=== PATIENT | female | born 1955 | race Caucasian/White ===

== ENCOUNTER 2017-04-27 06:52 | Observation (INO) | payer OTHER ==
[2017-04-27 07:27] VITALS: BMI 31.6
--- NOTE | 2017-04-27 07:54 | PDOC ---
Attending Attestation - Resident Resident Name: Ledy Benson - ED Attending Attestation I have performed the following: I have examined & evaluated the patient, The case was reviewed & discussed with the resident, I agree w/resident's findings & plan, Exceptions are as noted - HPI HPI: 04/27/17 08:11 This is a 62 yo F presenting to the ER with a complaint of back pain Symptoms began 2 weeks ago Worsened - Physicial Exam PE: 04/27/17 09:22 On examination: Right flank pain/sensitivity No abd tenderness Right buttock tenderness to palpation Pt is standing in her room She has difficulty sitting or standing - Medical Decision Making 04/27/17 09:22 Laboratory Tests 04/27/17 04/27/17 09:00 09:00 WBC 9.0 D Hgb 14.0 D Hct 40.5 D Plt Count 246 D Urine Blood Negative Ur Leukocyte Esterase Negative Urine RBC 3 Urine WBC 1 <Che Connolly - Last Filed: 04/27/17 09:22> - Medical Decision Making 04/27/17 10:05 EXAM#: TYPE/EXAM: RESULT: [id number] CT/SPIRAL- RENAL-STONE CT Renal stone CT without contrast Clinical information: lower back pain, evaluate for possible renal calculi Multiplanar imaging was performed. No urinary tract calculus or hydroureteronephrosis is seen. In comparison to a prior CT study of 06/29/2015 there has been interval resolution of a 3 cm fluid collection abutting the cecum laterally. Pericecal surgical clips are noted. The patient is apparently status post appendectomy. The liver, spleen, pancreas, gallbladder, kidneys and adrenal glands demonstrate no discrete noncontrast pathology. Incidental note is again made of small bilateral renal peripelvic cysts and a right renal cortical cyst. There is no aortic aneurysm. No evidence of pneumoperitoneum, bowel obstruction or free intraperitoneal fluid. Apparent surgical clips are seen within the right lateral aspect of the pelvis. No obvious pelvic pathology is visualized. There is mild to moderate multilevel bilateral lumbar degenerative facet arthropathy. IMPRESSION: No CT findings of acute pathology are identified. There is no evidence of urolithiasis or obstructive uropathy. Reported By: Aleks Farfan MD 04/27/17 1000 Documentation prepared by Clifford Painter, acting as manager medical for Che Connolly MD. <Clifford Painter - Last Filed: 04/27/17 10:06>
--- NOTE | 2017-04-27 07:59 | PDOC ---
History of Present Illness - General Chief Complaint: Back Pain Stated Complaint: BACK PAIN Time Seen by Provider: 04/27/17 07:42 History Source: Patient Exam Limitations: No Limitations - History of Present Illness Initial Comments: 04/27/17 08:56 Patient is a 62 y.o. female with a PMH of HTN who presents to our facility today c/o of a 2 week h/o of lower back pain that became increasingly severe overnight prompting her visit to the ED. Patient states the back pain began after lifting a heavy object. Initially the pain was confined to her lower back, however following prolonged sitting on a child sized chair, the pain spread to her R hip and upper leg. Patient denies any loss of sensation or urinary complaints, however noted that yesterday she was walking "funny" which she describes as her L leg "dragging" (possible Trendelenburg gait). Patient saw her PCP last week and was prescribed Metaxalone which provided some relief ( pain 10/10 prior to medication --> pain 6/10 following medication) however the medication did not relieve her symptoms overnight. Patient also notes she was taking some Oxycodone prescribed to her previously with no appreciable relief. Timing/Duration: other (2 week h/o lower back pain) Severity: severe Modifying Factors: improves with: other (Relieved by standing, exacerbated by laying supine) Associated Symptoms: reports: denies symptoms Aspirin Received prior to arrival: Yes: no aspirin today Beta Tri Contraindications(Core Measure): Yes: Not Prescribed Beta Tri Not Indicated at this Time(Core Measure): Yes Past History - Past Medical History Allergies/Adverse Reactions: Allergies Allergy/AdvReac Type Severity Reaction Status Date / Time No Known Allergies Allergy Verified 04/27/17 07:23 Home Medications: Ambulatory Orders Amlodipine Besylate [Norvasc -] 5 mg PO DAILY 03/31/13 Omeprazole [Prilosec] 40 mg PO DAILY 06/29/15 Alprazolam [Xanax] 0.25 mg PO DAILY PRN 04/27/17 Duloxetine HCl [Cymbalta] 40 mg PO DAILY 04/27/17 Hydrochlorothiazide 25 mg PO DAILY 04/27/17 Ibuprofen [Motrin -] 400 mg PO TID tablet 04/28/17 Meloxicam [Mobic] 15 mg PO DAILY #30 tablet 04/28/17 Cancer: Yes (H/O UTERINE.) HTN: Yes Hypercholesterolemia: Yes Psychiatric Problems: Yes (ANXIETY.) Suicide Attempt (Hx): No - Surgical History Abdominal Surgery: Yes Appendectomy: Yes (05/2015) - Psycho/Social/Smoking Cessation Hx Anxiety: Yes Suicidal Ideation: No Smoking Status: No Smoking History: Never smoked Have you smoked in the past 12 months: No Number of Cigarettes Smoked Daily: 0 Information on smoking cessation initiated: No Hx Alcohol Use: No Drug/Substance Use Hx: No Substance Use Type: None Review of Systems - Review of Systems Able to Perform ROS?: Yes All Other Systems: Reviewed and Negative *Physical Exam - Vital Signs Last Vital Signs Temp Pulse Resp BP Pulse Ox 98.7 F 60 18 147/80 100 04/27/17 07:24 04/27/17 07:24 04/27/17 07:24 04/27/17 07:24 04/27/17 07:24 - Physical Exam General Appearance: Yes: Nourished Neck: positive: Tender, Supple Respiratory/Chest: positive: Lungs Clear, Normal Breath Sounds Cardiovascular: positive: Regular Rhythm, Regular Rate, S1, S2 Gastrointestinal/Abdominal: positive: Normal Bowel Sounds, Soft Musculoskeletal: positive: CVA Tenderness Integumentary: positive: Normal Color, Dry, Warm Neurologic: positive: consulting database administrator II-XII NML intact, Fully Oriented, Alert ED Treatment Course - LABORATORY CBC & Chemistry Diagram: 04/27/17 09:00 04/28/17 06:38 Medical Decision Making - Medical Decision Making 04/27/17 11:08 Patient is a 62 y.o. female with a PMH of HTN who presents for a 1 day h/o increased severity of sacral back pain with radiation to her hip and thigh. UA was negative for hematuria and Pelvic/Abdominal CT showed no evidence of renal calculi. Imaging of patient's R hip showed no acute fracture and lumbar/ sacral x-ray showed degenerative changes and scoliosis. Given the absence of fracture patient is advised to follow up with her PCP for a referral to physical therapy. As patient was in significant pain and unable to ambulate a decision was made to admit her for observation. 04/27/17 11:57 *DC/Admit/Observation/Transfer Diagnosis at time of Disposition: Severe low back pain - Discharge Dispostion Disposition: HOME Condition at time of disposition: Stable Admit: Yes - Prescriptions - Referrals - Attestations Physician Attestion: 04/27/17 13:46 I, Dr. Ledy Benson, attest that this document has been prepared under my direction and personally reviewed by me in its entirety. I further attest, that it accurately reflects all work, treatment, procedures and medical decision -making performed by me.
[2017-04-27] MEDS ORDERED: morphine CARPU-JECT 4 MG/1 ML DISP.SYRIN IVPUSH ONE ×2 (08:34→09:33)
[2017-04-27] MEDS ORDERED: morphine CARPU-JECT 4 MG/1 ML DISP.SYRIN ONE ×2 (08:40→10:04)
[2017-04-27 09:14] LABS: BASOPHIL 1.3 % (0-2.0); EOSINOPHIL 1.7 % (0-4.5); MCH 32.4 pg (25.7-33.7); MCHC 34.6 g/dl (32.0-36.0); MEAN CELL VOLUME 93.5 fl (80-96); MEAN PLT VOLUME 8.1 fl (7.5-11.1); NEUTROPHILS 63.7 % (42.8-82.8); PLATELET COUNT 246 K/MM3 (134-434)
[2017-04-27 09:16] LABS: URINE APPEARANCE CLEAR; URINE BILIRUBIN NEGATIVE (NEGATIVE); URINE BLOOD NEGATIVE (NEGATIVE); URINE COLOR YELLOW; URINE GLUCOSE (UA) NEGATIVE (NEGATIVE); URINE KETONE TRACE (NEGATIVE); URINE LEUK ESTERASE NEGATIVE (NEGATIVE); URINE NITRITE NEGATIVE (NEGATIVE); URINE UROBILINOGEN NEGATIVE E.U./dl (0.2-1.0)
[2017-04-27 09:19] LABS: URINE PROTEIN 2+ (NEGATIVE)
[2017-04-27 09:21] LABS: URINE BACTERIA RARE /hpf (NONE SEEN); URINE HYALINE CAST 5 /lpf; URINE MUCUS MODERATE; URINE RBC 3 /hpf (0-3); URINE WBC 1 /hpf (3-5)
[2017-04-27 09:39] LABS: ANION GAP 8 (8-16); CALCIUM 10.2 mg/dL (8.5-10.1); CO2 29 mmol/L (21-32); CREATININE 0.9 mg/dL (0.55-1.02); GLUCOSE,RANDOM 94 mg/dL (74-106)
[2017-04-27] MEDS ORDERED: amLODIPine BESYLATE 10 MG TABLET (FP) PO ONE (11:27)
[2017-04-27] MEDS ORDERED: LOSARTAN 50MG/HCTZ 12.5MG 1 TAB (FP) PO ONE (11:28)
[2017-04-27] MEDS ORDERED: KETOROLAC TROMETHAMINE 30 MG/1 ML VIAL IVPUSH ONE (13:11)
[2017-04-27] MEDS ORDERED: KETOROLAC TROMETHAMINE 30 MG/1 ML VIAL ONE (13:22)
[2017-04-27] MEDS ORDERED: ALPRAZolam 0.25 MG TABLET PO PRN (14:05)
[2017-04-27] MEDS ORDERED: morphine CARPU-JECT 2 MG/1 ML DISP.SYRIN IVPUSH PRN (14:06)
[2017-04-27] MEDS ORDERED: KETOROLAC TROMETHAMINE 15 MG/ML VIAL IVPUSH PRN (18:59)
--- NOTE | 2017-04-27 20:07 | HP ---
Admitting History and Physical - Admission Chief Complaint: back pain History of Present Illness: 62 yo female, having increased back pain over past 2 weeks. 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 Had seen Dr Etienne (PMD) and started on tramadol , then nabumetone, then Mobic for the pain, with prn percocet also tried. The only one that helped slightly seemed to be the Mobic, but today pain became so intense that she could hardly move. No fevers during this time. Pain went down her legs, but no urinary or stool incontinence. In ED CT abd/pelv done to r/o renal colic as source of pain (no abnormalities of abdomen seen). Patient attempted to get up in the ED, but could not walk due to the pain, so now admitted for observation/ intractable pain. History Source: Patient, Medical Record Limitations to Obtaining History: No Limitations - Past Medical History Cardiovascular: Yes: HTN Gastrointestinal: Yes: GERD Infectious Disease: Yes: Other (h/o abd abscess following appendectomy) - Past Surgical History Past Surgical History: Yes: Appendectomy, Hysterectomy (for uterine ca) - Smoking History Smoking history: Never smoked Have you smoked in the past 12 months: No Aproximately how many cigarettes per day: 0 - Alcohol/Substance Use Hx Alcohol Use: No History of Substance Use: reports: None - Social History Occupation: Works as an medical assistant cardiology History of Recent Travel: No Home Medications - Allergies Allergies/Adverse Reactions: Allergies Allergy/AdvReac Type Severity Reaction Status Date / Time No Known Allergies Allergy Verified 04/27/17 07:23 - Home Medications Home Medications: Ambulatory Orders Amlodipine Besylate [Norvasc -] 5 mg PO DAILY 03/31/13 Omeprazole [Prilosec] 40 mg PO DAILY 06/29/15 Alprazolam [Xanax] 0.25 mg PO DAILY PRN 04/27/17 Duloxetine HCl [Cymbalta] 40 mg PO DAILY 04/27/17 Hydrochlorothiazide 25 mg PO DAILY 04/27/17 Family Disease History - Family Disease History Family Disease History: CA: Father (mesothelioma), Other: Mother (HTN) Review of Systems - Review of Systems Constitutional: denies: Chills, Lethargy, Loss of Appetite Eyes: reports: No Symptoms HENT: denies: Difficult Swallowing, Epistaxis, Nasal Congestion, Throat Pain Neck: denies: Pain on Movement, Tenderness Cardiovascular: denies: Chest Pain, Palpitations Respiratory: denies: Cough, SOB, SOB on Exertion Gastrointestinal: denies: Abdominal Pain, Constipation, Diarrhea, Melena, Nausea , Vomiting Genitourinary: denies: Burning, Discharge, Dysuria Neurological: denies: Change in LOC, Dizziness, Headache, Seizure Physical Examination Vital Signs: Vital Signs Temperature 98.0 F 04/27/17 16:20 Pulse Rate 64 04/27/17 16:20 Respiratory Rate 18 04/27/17 16:20 Blood Pressure 138/60 04/27/17 16:20 O2 Sat by Pulse Oximetry (%) 97 04/27/17 16:20 Constitutional: Yes: Well Nourished, No Distress, Calm, Anxious Eyes: Yes: Conjunctiva Clear, EOM Intact, PERRL HENT: Yes: Atraumatic, Normocephalic Neck: Yes: Supple, Trachea Midline Cardiovascular: Yes: Regular Rate and Rhythm, S1, S2. No: Murmur Respiratory: Yes: Regular, CTA Bilaterally. No: Rales, Rhonchi, Wheezes Gastrointestinal: Yes: Normal Bowel Sounds, Soft. No: Abdomen, Obese, Distention, Tenderness Musculoskeletal: Yes: Back Pain Edema: No Neurological: Yes: Alert, Oriented Labs: Laboratory Tests 04/27/17 04/27/17 04/27/17 09:00 09:00 09:00 WBC 9.0 D RBC 4.33 Hgb 14.0 D Hct 40.5 D MCV 93.5 MCH 32.4 MCHC 34.6 RDW 13.0 Plt Count 246 D MPV 8.1 Neutrophils % 63.7 Lymphocytes % 27.2 Monocytes % 6.1 Eosinophils % 1.7 Basophils % 1.3 Sodium 138 Potassium 4.5 Chloride 101 Carbon Dioxide 29 Anion Gap 8 BUN 17 Creatinine 0.9 D Random Glucose 94 Calcium 10.2 H D Urine Color Yellow Urine Appearance Clear Urine pH 7.0 D Ur Specific [place] 1.015 Urine Protein 2+ H Urine Glucose (UA) Negative Urine Ketones Trace H Urine Blood Negative Urine Nitrite Negative Urine Bilirubin Negative Urine Urobilinogen Negative Ur Leukocyte Esterase Negative Urine RBC 3 Urine WBC 1 Ur Epithelial Cells Rare Urine Bacteria Rare Hyaline Casts 5 Urine Mucus Moderate Problem List - Problems (1) Severe low back pain Assessment/Plan: -intractable back pain, unable to safely go home as cannot ambulate. -will treat with anti-inflammatories and pain medication, PT eval -hopefully if out of intractable pain by tomorrow can d/c home (if not will need pain mx for possible epidural) Code(s): M54.5 - LOW BACK PAIN
[2017-04-27] MEDS ORDERED: IBUPROFEN 400 MG TABLET (FP) PO SCH (22:00)
[2017-04-28 01:53] VITALS: TEMP 97.6
[2017-04-28 09:16] LABS: ANION GAP 7 (8-16); CALCIUM 9.1 mg/dL (8.5-10.1); CO2 31 mmol/L (21-32); CREATININE 0.7 mg/dL (0.55-1.02); GLUCOSE,RANDOM 91 mg/dL (74-106)
--- NOTE | 2017-04-28 09:42 | DS ---
Physical Examination Vital Signs: Vital Signs Temperature 97.6 F 04/28/17 05:51 Pulse Rate 60 04/28/17 05:51 Respiratory Rate 20 04/28/17 05:51 Blood Pressure 148/70 04/28/17 05:51 O2 Sat by Pulse Oximetry (%) 96 04/28/17 05:44 Constitutional: Yes: Well Nourished, No Distress, Calm Neck: Yes: Supple, Trachea Midline Cardiovascular: Yes: Regular Rate and Rhythm, S1, S2. No: Murmur Respiratory: Yes: Regular, CTA Bilaterally. No: Rales, Rhonchi, Wheezes Gastrointestinal: Yes: Normal Bowel Sounds, Soft Musculoskeletal: Yes: Back Pain (to palpation left paraspinal area lower and mid back) Edema: No Neurological: Yes: Alert, Oriented Labs: CBC, BMP 04/28/17 06:38 Discharge Summary Reason For Visit: SEVERE LOWER BACK PAIN Current Active Problems Severe low back pain (Acute) Hospital Course: 62 yo female admitted for observation for intractable back pain yesterday, unable to ambulate. Started on anti-inflammatories and pain medication, but patient's back improved with anti-inflammatory (was receiving IV toradol). [place] overnight, slight worsening this morning getting in and out of bed, but now able to ambulate. Will discharge with Mobic (advised to take for at least 1 week) and to get outpatient physical therapy for back pain. Condition: Stable - Instructions Referrals: Andreina Vuong MD [Primary Care Provider] - Disposition: HOME - Home Medications Comprehensive Discharge Medication List: Ambulatory Orders Amlodipine Besylate [Norvasc -] 5 mg PO DAILY 03/31/13 Omeprazole [Prilosec] 40 mg PO DAILY 06/29/15 Alprazolam [Xanax] 0.25 mg PO DAILY PRN 04/27/17 Duloxetine HCl [Cymbalta] 40 mg PO DAILY 04/27/17 Hydrochlorothiazide 25 mg PO DAILY 04/27/17 Ibuprofen [Motrin -] 400 mg PO TID tablet 04/28/17 Meloxicam [Mobic] 15 mg PO DAILY #30 tablet 04/28/17
[2017-04-28 09:54] VITALS: BP 151/90; PULSE 70
[2017-04-28] MEDS ORDERED: DULoxetine HCL 20 MG CAPSULE.DR (FP) PO SCH (10:00)
[2017-04-28] MEDS ORDERED: amLODIPine BESYLATE 5 MG TABLET (FP) PO SCH (10:00)
[2017-04-28] MEDS ORDERED: PANTOPRAZOLE SOD 40 MG SUSPENSION PACKET PO SCH (10:00)
[2017-04-28] MEDS ORDERED: HYDROCHLOROTHIAZIDE 25 MG TABLET (FP) PO SCH (10:00)
== END 2017-04-28 11:22 | disposition home or self-care (01) ==
LOC: JER 06:52 → JERBED 13:44 → UNDOADMOB 14:15 → JERBED 14:15 → J6S 15:59
PROVIDERS: ADMIT Specialist; ATTEND Specialist
PROC: 3E0333Z Introduction of Anti-inflammatory into Peripheral Vein, Percutaneous Approach (ICD-10-PCS; principal; 2017-04-27)
PROC: 3E033NZ Introduction of Analgesics, Hypnotics, Sedatives into Peripheral Vein, Percutaneous Approach (ICD-10-PCS; 2017-04-27)
DX: M54.5 Low back pain (principal); I10 Essential (primary) hypertension; E78.00 Pure hypercholesterolemia, unspecified; Z85.42 Personal history of malignant neoplasm of other parts of uterus; F41.9 Anxiety disorder, unspecified
CPT/HCPCS: 36415; 72100-TC; 73502-TC-RT; 74176; 80048; 81003; 81015; 85025; 99285-25; G0378

== ENCOUNTER 2017-09-03 12:39 | Emergency (ER) | payer OTHER ==
[2017-09-03 12:58] VITALS: BP 158/82; PULSE 67; TEMP 98.8; BMI 34.1
--- NOTE | 2017-09-03 13:06 | PDOC ---
History of Present Illness - General History Source: Patient Exam Limitations: No Limitations - History of Present Illness Initial Comments: 09/03/17 14:20 The patient is a 62-year-old female, with a significant past medical history of HTN and gerd, who presents to the ED with pain in left knee pain, left elbow pain, and left shoulder pain. Pt reports that she was walking up a hill four weeks ago and fell. She hyperextended her knee and fell into a pushup position, injuring her left knee, left elbow, and left shoulder. About a week ago the patient was walking down some steps and felt her left knee pop. The patients pain has progressively worsened since then and she reports that she is now finding it difficult to move her knee. She describes the pain as a shooting pain that is intermittent, 7/10 in severity, and exacerbated with motion. The pt reports taking meloxicam and tramadol with minor relief of her symptoms. The patient denies having any other injuries or symptoms. Allergies: None <Suzette Vazquez - Last Filed: 09/03/17 14:43> - General History Source: Patient <Jacy Roman - Last Filed: 09/03/17 15:21> - General Chief Complaint: Injury Stated Complaint: S/P FALL PAIN TO BOTH KNEES AND L ARM Time Seen by Provider: 09/03/17 12:49 Past History <Suzette Vazquez - Last Filed: 09/03/17 14:43> - Past Medical History Cancer: Yes (H/O UTERINE. skin cancer to face) COPD: No HTN: Yes Hypercholesterolemia: Yes Psychiatric Problems: Yes (ANXIETY.) - Surgical History Abdominal Surgery: Yes Appendectomy: Yes (05/2015) - Suicide/Smoking/Psychosocial Hx Smoking Status: No Smoking History: Never smoked Have you smoked in the past 12 months: No Number of Cigarettes Smoked Daily: 0 Hx Alcohol Use: No Drug/Substance Use Hx: No Substance Use Type: None Hx Substance Use Treatment: No <Jacy Roman - Last Filed: 09/03/17 15:21> - Past Medical History Allergies/Adverse Reactions: Allergies Allergy/AdvReac Type Severity Reaction Status Date / Time No Known Allergies Allergy Verified 09/03/17 12:41 Home Medications: Ambulatory Orders Amlodipine Besylate [Norvasc -] 5 mg PO DAILY 06/11/13 Omeprazole [Prilosec] 40 mg PO DAILY 06/29/15 Ibuprofen [Motrin -] 400 mg PO TID #21 tablet 09/03/17 Review of Systems - Review of Systems Able to Perform ROS?: Yes Constitutional: No: Symptoms Reported, See HPI, Chills, Diaphoresis, Fever, Loss of Appetite, Malaise, Night Sweats, Weakness, Weight Stable, Unintentional Wgt. Loss, Unexplained wgt Loss, Other HEENTM: No: Symptoms Reported, See HPI, Eye Pain, Blurred Vision, Tearing, Recent change in vision, Double Vision, Cataracts, Ear Pain, Ocular Prothesis, Ear Discharge, Nose Pain, Nose Congestion, Tinnitus, Nose Bleeding, Hearing Loss , Throat Pain, Throat Swelling, Mouth Pain, Dental Problems, Difficulty Swallowing, Mouth Swelling, Other Respiratory: No: Symptoms reported, See HPI, Cough, Orthopnea, Shortness of Breath, SOB with Exertion, SOB at Rest, Stridor, Wheezing, Productive cough, Hemoptysis, Other Cardiac (ROS): No: Symptoms Reported, See HPI, Chest Pain, Edema, Irregular Heart Rate, Lightheadedness, Palpitations, Syncope, Chest Tightness, Other ABD/GI: No: Symptoms Reported, See HPI, Abdominal Distended, Abd. Pain w/ defecation, Blood Streaked Bowels, Constipated, Diarrhea, Difficulty Swallowing , Nausea, Poor Appetite, Poor Fluid Intake, Rectal Bleeding, Vomiting, Indigestion, Abdominal cramping, Tarry Stools, Other Musculoskeletal: Yes: Joint Pain (Joint in left knee, left elbow, and left shoulder.) Integumentary: No: Symptoms Reported, See HPI, Bruising, Change in Color, Change in Hair/Nails, Dryness, Erythema, Flushing, Lesions, Lumps, Pallor, Pruritus, Rash, Sweating, Other Neurological: No: Symptoms reported, See HPI, Headache, Numbness, Paresthesia, Pre-Existing Deficit, Seizure, Tingling, Tremors, Weakness, Unsteady Gait, Ataxia, Dizziness, Other <Suzette Vazquez - Last Filed: 09/03/17 14:43> *Physical Exam - Vital Signs Last Vital Signs Temp Pulse Resp BP Pulse Ox 98.8 F 67 16 158/82 6 L 09/03/17 12:40 09/03/17 12:40 09/03/17 12:40 09/03/17 12:40 09/03/17 12:40 - Physical Exam General Appearance: Yes: Nourished, Appropriately Dressed HEENT: positive: Normal ENT Inspection Neck: positive: Supple Respiratory/Chest: positive: Normal Breath Sounds Cardiovascular: positive: Regular Rhythm, Regular Rate Gastrointestinal/Abdominal: positive: Normal Bowel Sounds, Soft Musculoskeletal: positive: Normal Inspection Extremity: positive: Other (Full range of motion of wrist elbow and shoulder. Pain to palpation over the anterior portion of the left olecranon fossa. Pain to palpation over the left coracoid process. ) Integumentary: positive: Normal Color, Dry, Warm Neurologic: positive: Fully Oriented, Alert, Motor Strength 5/5, Other (2+ pulses throughout.) <Suzette Vazquez - Last Filed: 09/03/17 14:43> - Vital Signs Last Vital Signs Temp Pulse Resp BP Pulse Ox 98.8 F 67 16 158/82 6 L 09/03/17 12:40 09/03/17 12:40 09/03/17 12:40 09/03/17 12:40 09/03/17 12:40 <Jacy Roman - Last Filed: 09/03/17 15:21> *DC/Admit/Observation/Transfer - Attestations Scribe Attestion: 09/03/17 14:25 Documentation prepared by Suzette Vazquez, acting as medical legal investigator for Jacy Roman MD. <Suzette Vazquez - Last Filed: 09/03/17 14:43> <Jacy Roman - Last Filed: 09/03/17 15:21> Diagnosis at time of Disposition: Accidental fall Qualifiers: Encounter type: initial encounter Qualified Code(s): W19.XXXA - Unspecified fall, initial encounter - Discharge Dispostion Disposition: HOME Condition at time of disposition: Stable - Referrals Referrals: Alvin Cooper MD [Staff Physician] - - Patient Instructions Printed Discharge Instructions: Shoulder Sprain, Knee Sprain Additional Instructions: Suggest antinflamatory medication with food. Take the reports and CR ROM to your othopedic doctor - Post Discharge Activity Forms/Work/School Notes: Back to Work
== END 2017-09-03 15:27 | disposition home or self-care (01) ==
LOC: FER 12:39
DX: Z04.3 Encounter for examination and observation following other accident (principal); W18.39XA Other fall on same level, initial encounter; Y93.89 Activity, other specified; Y92.9 Unspecified place or not applicable; I10 Essential (primary) hypertension; K21.9 Gastro-esophageal reflux disease without esophagitis; F41.9 Anxiety disorder, unspecified; E78.00 Pure hypercholesterolemia, unspecified
CPT/HCPCS: 73030-TC-LT; 73070-TC-LT; 73130-TC-LT; 73560-TC-LT; 99281-25

== ENCOUNTER 2021-03-27 13:50 | Emergency (ER) | payer OTHER ==
[2021-03-27 14:06] VITALS: BP 156/78; PULSE 71; TEMP 98; BMI 35.7
== END 2021-03-27 14:45 | disposition home or self-care (01) ==
LOC: FER 13:50
DX: M25.511 Pain in right shoulder (principal); S40.011A Contusion of right shoulder, initial encounter
CPT/HCPCS: 99281-25

== ENCOUNTER 2021-04-10 17:35 | Emergency (ER) | payer OTHER ==
[2021-04-10 18:01] VITALS: BP 127/74; PULSE 73; TEMP 98.5; BMI 35.7
[2021-04-10] MEDS ORDERED: ACETAMINOPHEN 500 MG TABLET (FP) PO ONE (18:45)
[2021-04-10] MEDS ORDERED: ACETAMINOPHEN 500 MG TABLET (FP) ONE (18:46)
== END 2021-04-10 19:50 | disposition home or self-care (01) ==
LOC: JERFT 17:35
DX: M25.551 Pain in right hip (principal)
CPT/HCPCS: 73700-TC-RT; 99284-25

== ENCOUNTER 2021-07-27 08:20 | Day surgery (SDC) | payer OTHER ==
[2021-07-24 14:52] VITALS: BMI 34.4
[2021-07-27] MEDS ORDERED: MIDAZOLAM HCL 2 MG/2 ML SINGLE DOSE VIAL ONE ×2 (11:58→12:02)
[2021-07-27 13:04] VITALS: TEMP 97.9
[2021-07-27 14:16] VITALS: BP 135/66; PULSE 72
== END 2021-07-27 14:00 | disposition home or self-care (01) ==
LOC: FASU 08:20
PROVIDERS: ATTEND Orthopaedic Surgery Sports Medicine
PROC: 3E013GC Introduction of Other Therapeutic Substance into Subcutaneous Tissue, Percutaneous Approach (ICD-10-PCS; principal; 2021-07-27 12:30)
DX: M16.11 Unilateral primary osteoarthritis, right hip (principal)

== ENCOUNTER 2022-03-23 13:39 | Emergency (ER) | payer OTHER ==
[2022-03-23 14:14] VITALS: BP 148/61; PULSE 66; TEMP 98.6; BMI 29.5
[2022-03-23] MEDS ORDERED: LIDOCAINE 5% TOPICAL PATCH TP ONE (14:55)
[2022-03-23] MEDS ORDERED: ACETAMINOPHEN 500 MG TABLET (FP) PO ONE (14:55)
[2022-03-23] MEDS ORDERED: LIDOCAINE 5% TOPICAL PATCH ONE (15:11)
[2022-03-23] MEDS ORDERED: ACETAMINOPHEN 500 MG TABLET (FP) ONE (15:11)
[2022-03-23] MEDS ORDERED: LIDOCAINE PATCH REMOVAL MC SCH (22:00)
== END 2022-03-23 15:45 | disposition home or self-care (01) ==
LOC: FER 13:39
DX: S22.31XA Fracture of one rib, right side, initial encounter for closed fracture (principal); X50.0XXA Overexertion from strenuous movement or load, initial encounter
CPT/HCPCS: 71101-TC-RT-FY; 99284-25

== ENCOUNTER → 2023-09-03 | Day surgery (SDC) | payer OTHER ==
[2023-09-02 09:12] VITALS: BMI 26.9
[2023-09-03 11:56] VITALS: TEMP 97.3
[2023-09-03 12:13] VITALS: BP 128/78; PULSE 69; RESP 18
== END | disposition home or self-care (01) ==
LOC: FASU-ENDO 09:39
PROVIDERS: ATTEND Internal Medicine Gastroenterology
PROC: 0DB78ZX Excision of Stomach, Pylorus, Via Natural or Artificial Opening Endoscopic, Diagnostic (ICD-10-PCS; 2023-09-03)
PROC: 0DB48ZX Excision of Esophagogastric Junction, Via Natural or Artificial Opening Endoscopic, Diagnostic (ICD-10-PCS; 2023-09-03)
PROC: 0DB98ZX Excision of Duodenum, Via Natural or Artificial Opening Endoscopic, Diagnostic (ICD-10-PCS; principal; 2023-09-03 11:28)
DX: K29.50 Unspecified chronic gastritis without bleeding (principal); K22.10 Ulcer of esophagus without bleeding
CPT/HCPCS: 88305-TC; 88312-TC; 88342-TC

== ENCOUNTER 2024-05-22 06:10 | Day surgery (SDC) | payer OTHER ==
[2024-05-18 16:27] VITALS: BMI 27.8
[2024-05-22 06:52] VITALS: RESP 20
[2024-05-22] MEDS ORDERED: PROPOFOL 60 ML ONE (07:24)
[2024-05-22] MEDS ORDERED: LIDOCAINE HCL/PF 2% SDV 5ML VIAL ONE (07:27)
[2024-05-22 08:35] VITALS: TEMP 97.8
[2024-05-22 08:49] VITALS: BP 127/60; PULSE 80
== END 2024-05-22 08:51 | disposition home or self-care (01) ==
LOC: FASU-ENDO 06:10
PROVIDERS: ATTEND Internal Medicine Gastroenterology
PROC: 0DB58ZX Excision of Esophagus, Via Natural or Artificial Opening Endoscopic, Diagnostic (ICD-10-PCS; principal; 2024-05-22 07:38)
DX: K22.2 Esophageal obstruction (principal); K20.80 Other esophagitis without bleeding; K31.89 Other diseases of stomach and duodenum; R10.13 Epigastric pain; R13.10 Dysphagia, unspecified
CPT/HCPCS: 88305-TC; 88312-TC